=== PATIENT | male | born 1960 ===

== ENCOUNTER → 2022-02-17 | Day surgery (SDC) | payer OTHER ==
[~2022-02-17] MED LIST: AMLODIP PO; ATORVASTATIN CA80 MG PO; DERMOPLAST PAIN78 GM TOP; GLIPIZIDE ER10 MG PO; GLUMETZA500 MG PO; KETO10TA2 PO; NEURONTIN300 MG PO; PERCOCET 5-3251 EACH PO; TAMS0.4C PO; ZESTRIL40 M1 PO
== END | disposition home or self-care (01) ==
LOC: ADM 02-15 08:45 → CIR.AMB 08:45
PROVIDERS: ATTEND Surgery
DX: K64.2 Third degree hemorrhoids (principal); E78.5 Hyperlipidemia, unspecified; Z71.6 Tobacco abuse counseling; F17.210 Nicotine dependence, cigarettes, uncomplicated; N40.0 Benign prostatic hyperplasia without lower urinary tract symptoms; M81.0 Age-related osteoporosis without current pathological fracture; E66.9 Obesity, unspecified